=== PATIENT | male | born 1935 | race Caucasian/White ===

== ENCOUNTER 2017-07-22 08:57 | Observation (INO) | payer MEDICARE ==
[~2017-07-22] VITALS: Ht 185.4 cm; Wt 95.2 kg
[~2017-07-22 08:57] MED LIST: BACITRACIN 50,000 UNIT ONE; BUPIVACAINE 0.25% ONE; BUPIVACAINE/PF 0.5% ONE; EPINEPHRINE 1 MG/ML, 1ML ONE; THROMBIN 5,000 UNIT VIAL TP ONE
[2017-07-22 09:27] VITALS: BP 104/69
[2017-07-22] MEDS ORDERED: PSYL0.5215 PO (09:43)
[2017-07-22] MEDS ORDERED: FINA5TAB4 PO (09:43)
[2017-07-22] MEDS ORDERED: TAMS-11 PO (09:43)
[2017-07-22] MEDS ORDERED: POLY500P18 PO (09:43)
[2017-07-22] MEDS ORDERED: LACTATED RINGERS 1,000 ML IV SCH (09:43)
[2017-07-22] MEDS ORDERED: SIMV80TA3 PO (09:43)
[2017-07-22] MEDS ORDERED: VIT1TABL32 PO (09:43)
[2017-07-22] MEDS ORDERED: HYDROmorphone 1 MG/ML, 1ML IV PRN (10:00)
[2017-07-22] MEDS ORDERED: morphine SULFATE 10 MG/ML, 1ML IV PRN (10:00)
[2017-07-22] MEDS ORDERED: LABETALOL 5MG/ML, 20ML IV PRN (10:00)
[2017-07-22] MEDS ORDERED: ONDANSETRON 2MG/ML, 2ML IVPush PRN ×2 (10:00→13:30)
[2017-07-22] MEDS ORDERED: LIDOCAINE-MPF 1%, 2ML INFIL ONE (10:00)
[2017-07-22] MEDS ORDERED: ACETAMINOPHEN 325 MG TABLET PO PRN (10:00)
[2017-07-22] MEDS ORDERED: hydrALAzine 20 MG/ML, 1ML IV PRN (10:00)
[2017-07-22] MEDS ORDERED: FENTANYL PF 100 MCG/2ML IV PRN (10:00)
[2017-07-22] MEDS ORDERED: PROMETHAZINE 12.5 MG SUPP PR PRN (10:00)
[2017-07-22] MEDS ORDERED: OXYcodone 5 MG/5 ML ORAL.SOL UDC PO PRN (10:00)
[2017-07-22] MEDS ORDERED: FENTANYL PF 250 MCG/5ML ONE (10:21)
[2017-07-22] MEDS ORDERED: PROPOFOL 50 ML ONE (10:32)
[2017-07-22] MEDS ORDERED: CEFAZOLIN 1,000 MG ONE (11:11)
[2017-07-22] MEDS ORDERED: FENTANYL PF 100 MCG/2ML ONE (12:11)
[2017-07-22] MEDS ORDERED: ONDANSETRON 2MG/ML, 2ML ONE ×2 (12:14)
[2017-07-22] MEDS ORDERED: ROCURONIUM 10 MG/ML,10ML ONE (12:14)
[2017-07-22] MEDS ORDERED: DEXAMETHASONE 4 MG/ML, 1ML ONE (12:14)
[2017-07-22] MEDS ORDERED: PROPOFOL 10 MG/ML, 20ML ONE (12:14)
[2017-07-22] MEDS ORDERED: BUPIVACAINE/PF 0.25% EPIDPUSH ONE (12:21)
[2017-07-22] MEDS ORDERED: FENTANYL PF 100 MCG/2ML EPIDPUSH ONE (12:22)
[2017-07-22] MEDS ORDERED: CYCLOBENZAPRINE 10 MG TABLET PO PRN (13:30)
[2017-07-22] MEDS ORDERED: SENNA/DOCUSATE TABLET PO PRN (13:30)
[2017-07-22] MEDS ORDERED: BISACODYL 10 MG SUPP PR PRN (13:30)
[2017-07-22] MEDS ORDERED: OXYcodone/APAP 5/325MG TABLET PO PRN (13:30)
[2017-07-22] MEDS ORDERED: morphine SULFATE 10 MG/ML, 1ML IVPush PRN (13:30)
[2017-07-22] MEDS ORDERED: HYDROcodone/APAP 5/325 TABLET PO PRN (13:30)
[2017-07-22] MEDS ORDERED: HYDROcodone/APAP 10/325 MG TABLET PO PRN (13:30)
[2017-07-22] MEDS ORDERED: ACETAMINOPHEN 650 MG SUPP PR PRN (13:30)
[2017-07-22] MEDS ORDERED: DIPHENHYDRAMINE 50 MG/ML, 1ML IVPush PRN (13:30)
[2017-07-22] MEDS ORDERED: PHARMACY MAY ADJ FOR RENAL FX MC PRN (13:30)
[2017-07-22] MEDS ORDERED: PROMETHAZINE 25 MG/ML, 1ML IM PRN (13:30)
[2017-07-22] MEDS ORDERED: OXYcodone 5 MG/5 ML ORAL.SOL UDC ONE (13:45)
[2017-07-22] MEDS ORDERED: ACETAMINOPHEN 650 MG/20.3 ML UDC ONE (13:45)
[2017-07-22 16:54] VITALS: BP 104/67
[2017-07-22] MEDS: D5%-0.9% NACL+KCL 20MEQ 1,000 ML IV SCH (18:00)
[2017-07-22 20:02] VITALS: BP 99/55
[2017-07-22] MEDS: CEFAZOLIN PMX 1GM/50ML 50 ML IVPB SCH (20:50)
[2017-07-22] MEDS ORDERED: SIMVASTATIN 40 MG TABLET PO SCH (21:00)
[2017-07-22 23:08] VITALS: BP 97/58
[2017-07-23 03:39] VITALS: BP 98/44
[2017-07-23] MEDS: CEFAZOLIN PMX 1GM/50ML 50 ML IVPB SCH (04:24)
[2017-07-23] MEDS: SODIUM CHLORIDE FLUSH 10ML SYR IVF SCH ×2 (04:25→08:58)
[2017-07-23 07:39] VITALS: BP 92/56
[2017-07-23] MEDS ORDERED: POLYETHYLENE GLYCOL 17 GM PACKET PO SCH (09:00)
[2017-07-23] MEDS ORDERED: TAMSULOSIN 0.4 MG CAP.ER.24H PO SCH (09:00)
[2017-07-23] MEDS ORDERED: PSYLLIUM PACKET PO SCH (09:00)
[2017-07-23] MEDS ORDERED: FINASTERIDE 5 MG TABLET PO SCH (09:00)
[2017-07-23] MEDS: D5%-0.9% NACL+KCL 20MEQ 1,000 ML IV SCH (09:30)
[2017-07-23] MEDS ORDERED: HYDR-3237 PO (12:46)
[2017-07-23] MEDS ORDERED: CYCL5TAB PO (12:47)
[2017-07-23] MEDS ORDERED: CEPH-368 PO (12:47)
[2017-07-23 13:00] VITALS: BP 137/67
== END 2017-07-23 13:30 | disposition home or self-care (01) ==
LOC: OUT 08:57 → ORIP 13:19 → 4NOR 14:20
PROVIDERS: ADMIT Neurological Surgery; ATTEND Neurological Surgery
DX: M48.062 Spinal stenosis, lumbar region with neurogenic claudication (principal)
CPT/HCPCS: 63030; 63035; 72100; 96365; 96375; 97161; G0378; J0171; J0690; J1100; J2405; J2704; J3010; J3480; J3490